=== PATIENT | male | born 1990 | race Caucasian/White ===

== ENCOUNTER 2017-11-27 21:57 | Emergency (ER) | payer MEDICAID, SELFPAY ==
[~2017-11-27] VITALS: Ht 185.4 cm; Wt 80.0 kg
[2017-11-27 22:04] VITALS: BP 141/86
== END 2017-11-27 23:52 | disposition home or self-care (01) ==
LOC: ED 23:46
DX: R53.1 Weakness (principal); R20.2 Paresthesia of skin
CPT/HCPCS: 70450; 99284

== ENCOUNTER 2018-01-08 05:18 | Inpatient (IN) | payer OTHER, MEDICAID ==
[~2018-01-08] VITALS: Ht 185.4 cm; Wt 72.9 kg
[2018-01-08] MEDS ORDERED: ONDANSETRON 2MG/ML, 2ML ONE (05:29)
[2018-01-08] MEDS ORDERED: ONDANSETRON 2MG/ML, 2ML IVPush ONE (05:30)
[2018-01-08] MEDS ORDERED: SODIUM CHLORIDE 0.9% 1,000ML IVBOLUS ONE (05:30)
[2018-01-08] MEDS ORDERED: SODIUM CHLORIDE FLUSH 10ML SYR IVF ONE (05:30)
[2018-01-08 05:55] LABS: BASOPHILS % (AUTO) 0 % (0-1); EOSINOPHILS % (AUTO) 0 % (1-7); LYMPHOCYTES # (AUTO) 0.94 x10^3/uL (1-3.4); LYMPHOCYTES % (AUTO) 9 % (22-44); MD NO; MEAN CORPUSCULAR HEMOGLOBIN 28.8 pg (27.5-34.5); MEAN CORPUSCULAR HGB CONC 32.7 g/dL (33.2-36.2); MEAN CORPUSCULAR VOLUME 87.9 fL (81-97); MEAN PLATELET VOLUME 7.9 fL (7.4-10.4); MONOCYTES # (AUTO) 1.01 x10^3/uL (0.2-0.8); MONOCYTES % (AUTO) 10 % (2-9); NEUTROPHILS # (AUTO) 8.65 x10^3/uL (1.8-6.8); NEUTROPHILS % (AUTO) 82 % (42-75); PLATELET COUNT 340 x10^3/uL (130-400); RED BLOOD COUNT 6.64 x10^6/uL (4.38-5.82); RED CELL DISTRIBUTION WIDTH 15.8 % (9.4-14.8)
[2018-01-08] MEDS ORDERED: LORazepam 2 MG/ML, 1ML IVPush ONE (06:00)
[2018-01-08 06:02] LABS: INTERNATIONAL NORMALIZED RATIO 1.06 (0.93-1.1); PROTHROMBIN TIME 10.9 Seconds (9.6-11.5)
[2018-01-08 06:07] LABS: ALANINE AMINOTRANSFERASE 412 U/L (12-78); ALBUMIN 4.4 g/dL (3.4-5.0); ANION GAP 9 mmol/L (5-15); CALCIUM 9.7 mg/dL (8.5-10.1); CHLORIDE 92 mmol/L (98-107); CREATININE 1.35 mg/dL (0.7-1.3)
[2018-01-08] MEDS ORDERED: LORazepam 2 MG/ML, 1ML ONE (06:09)
[2018-01-08 06:10] LABS: ALKALINE PHOSPHATASE 155 U/L (45-117); BILIRUBIN,TOTAL 1.1 mg/dL (0.2-1.0); TOTAL PROTEIN 9.4 g/dL (6.4-8.2)
[2018-01-08] MEDS ORDERED: METOCLOPRAMIDE 5 MG/ML, 2ML ONE (07:41)
[2018-01-08] MEDS ORDERED: METOCLOPRAMIDE 5 MG/ML, 2ML IVPush ONE (08:00)
[2018-01-08 09:08] VITALS: BP 132/75
[2018-01-08] MEDS ORDERED: SODIUM CHLORIDE 0.9% 1,000 ML IV SCH (10:00)
[2018-01-08] MEDS ORDERED: morphine SULFATE 10 MG/ML, 1ML IVPush PRN (10:00)
[2018-01-08] MEDS ORDERED: hydrALAzine 20 MG/ML, 1ML IVPush PRN (11:30)
[2018-01-08] MEDS ORDERED: BISACODYL 10 MG SUPP PR PRN (11:30)
[2018-01-08] MEDS ORDERED: POLYETHYLENE GLYCOL 17 GM PACKET PO PRN (11:30)
[2018-01-08] MEDS ORDERED: ENALAPRILAT 1.25 MG/ML, 2ML IVPush PRN (11:30)
[2018-01-08] MEDS ORDERED: ONDANSETRON 2MG/ML, 2ML IVPush PRN (11:30)
[2018-01-08] MEDS ORDERED: DOCUSATE 100 MG CAPSULE PO PRN (11:30)
[2018-01-08] MEDS: NICOTINE 7 MG/24 HR PATCH.TD24 TD SCH (11:30)
[2018-01-08] MEDS: D5%-0.9% NACL+KCL 20MEQ 1,000 ML IV SCH ×2 (11:40→20:45)
[2018-01-08] MEDS: PIPERACILLIN/TAZO/PMX 3.375GM 50 ML IV SCH ×3 (11:41→23:04)
[2018-01-08] MEDS: FAMOTIDINE 20 MG/2 ML IVPush SCH ×2 (11:43→20:45)
[2018-01-08 12:46] LABS: FREE T4 (FREE THYROXINE) 1.04 ng/dL (0.76-1.46); THYROID STIMULATING HORMONE 0.278 mIU/L (0.358-3.740)
[2018-01-08 13:35] LABS: MICROSCOPIC INDICATED
[2018-01-08 13:48] LABS: CULTURE INDICATED? NO
[2018-01-08 13:55] LABS: HEMOGLOBIN A1C 6.2 % (4.2-6.3)
[2018-01-08 14:27] VITALS: BP 132/80
[2018-01-08] MEDS: LORazepam 2 MG/ML, 1ML IVPush PRN (17:46)
[2018-01-08 20:43] VITALS: BP 137/83
[2018-01-09 02:46] VITALS: BP 139/75
[2018-01-09 04:40] LABS: BASOPHILS # (AUTO) 0.03 x10^3/uL (0-0.1); BASOPHILS % (AUTO) 0 % (0-1); EOSINOPHILS % (AUTO) 0 % (1-7); LYMPHOCYTES # (AUTO) 1.58 x10^3/uL (1-3.4); LYMPHOCYTES % (AUTO) 10 % (22-44); MD NO; MEAN CORPUSCULAR HEMOGLOBIN 29.3 pg (27.5-34.5); MEAN CORPUSCULAR HGB CONC 32.9 g/dL (33.2-36.2); MEAN CORPUSCULAR VOLUME 89.1 fL (81-97); MEAN PLATELET VOLUME 7.4 fL (7.4-10.4); MONOCYTES # (AUTO) 1.23 x10^3/uL (0.2-0.8); MONOCYTES % (AUTO) 8 % (2-9); NEUTROPHILS # (AUTO) 12.61 x10^3/uL (1.8-6.8); NEUTROPHILS % (AUTO) 82 % (42-75); PLATELET COUNT 324 x10^3/uL (130-400); RED BLOOD COUNT 5.28 x10^6/uL (4.38-5.82); RED CELL DISTRIBUTION WIDTH 16.2 % (9.4-14.8)
[2018-01-09 04:48] LABS: ALANINE AMINOTRANSFERASE 207 U/L (12-78); ALBUMIN 3.2 g/dL (3.4-5.0); ANION GAP 7 mmol/L (5-15); CALCIUM 7.8 mg/dL (8.5-10.1); CHLORIDE 105 mmol/L (98-107); TRIGLYCERIDES 104 mg/dL (50-200); VLDL CHOLESTEROL 21 mg/dL (0-25)
[2018-01-09 04:50] LABS: ALKALINE PHOSPHATASE 98 U/L (45-117); BILIRUBIN,TOTAL 1.1 mg/dL (0.2-1.0); HDL CHOLESTEROL (DIRECT) 26 mg/dL (40-60)
[2018-01-09] MEDS: D5%-0.9% NACL+KCL 20MEQ 1,000 ML IV SCH ×3 (05:38→22:08)
[2018-01-09] MEDS: PIPERACILLIN/TAZO/PMX 3.375GM 50 ML IV SCH ×4 (05:38→23:32)
[2018-01-09 06:10] LABS: CHOL/HDL RATIO 4.4; HDL CHOL % 23 % (26-37); LDL/HDL RATIO 2.6 (0.5-3.0)
[2018-01-09 06:11] LABS: CHOLESTEROL, TOTAL 115 mg/dL (140-239); LDL CHOLESTEROL,CALCULATED 68 mg/dL (54-169)
[2018-01-09 07:36] VITALS: BP 131/80
[2018-01-09] MEDS: FAMOTIDINE 20 MG/2 ML IVPush SCH ×2 (08:20→20:14)
[2018-01-09] MEDS: NICOTINE 7 MG/24 HR PATCH.TD24 TD SCH (10:45)
[2018-01-09 14:15] VITALS: BP 122/70
[2018-01-09 20:45] VITALS: BP 131/83
[2018-01-10 00:32] VITALS: BP 103/68
[2018-01-10 02:49] LABS: BASOPHILS # (AUTO) 0.03 x10^3/uL (0-0.1); BASOPHILS % (AUTO) 0 % (0-1); EOSINOPHILS # (AUTO) 0.03 x10^3/uL (0-0.4); EOSINOPHILS % (AUTO) 0 % (1-7); LYMPHOCYTES # (AUTO) 2.27 x10^3/uL (1-3.4); LYMPHOCYTES % (AUTO) 19 % (22-44); MD NO; MEAN CORPUSCULAR HEMOGLOBIN 29.2 pg (27.5-34.5); MEAN CORPUSCULAR HGB CONC 32.9 g/dL (33.2-36.2); MEAN CORPUSCULAR VOLUME 88.8 fL (81-97); MEAN PLATELET VOLUME 7.6 fL (7.4-10.4); MONOCYTES # (AUTO) 0.91 x10^3/uL (0.2-0.8); MONOCYTES % (AUTO) 8 % (2-9); NEUTROPHILS # (AUTO) 8.49 x10^3/uL (1.8-6.8); NEUTROPHILS % (AUTO) 72 % (42-75); PLATELET COUNT 280 x10^3/uL (130-400); RED BLOOD COUNT 5.27 x10^6/uL (4.38-5.82); RED CELL DISTRIBUTION WIDTH 15.7 % (9.4-14.8)
[2018-01-10 02:58] LABS: ANION GAP 6 mmol/L (5-15); CALCIUM 7.7 mg/dL (8.5-10.1); CHLORIDE 107 mmol/L (98-107)
[2018-01-10 03:02] LABS: ALANINE AMINOTRANSFERASE 162 U/L (12-78); ALKALINE PHOSPHATASE 88 U/L (45-117); BILIRUBIN,TOTAL 1.3 mg/dL (0.2-1.0); CREATININE 0.76 mg/dL (0.7-1.3); TOTAL PROTEIN 6.8 g/dL (6.4-8.2)
[2018-01-10] MEDS: PIPERACILLIN/TAZO/PMX 3.375GM 50 ML IV SCH ×2 (05:19→11:39)
[2018-01-10] MEDS: D5%-0.9% NACL+KCL 20MEQ 1,000 ML IV SCH (05:20)
[2018-01-10 07:39] VITALS: BP 138/84
[2018-01-10] MEDS: FAMOTIDINE 20 MG/2 ML IVPush SCH (08:28)
[2018-01-10] MEDS: NICOTINE 7 MG/24 HR PATCH.TD24 TD SCH (08:41)
[2018-01-10] MEDS: LORazepam 2 MG/ML, 1ML IVPush PRN (08:56)
[2018-01-10] MEDS ORDERED: METR500T PO (13:21)
[2018-01-10] MEDS ORDERED: DOCU-131 PO (13:21)
[2018-01-10] MEDS ORDERED: CIPR500T87 PO (13:21)
[2018-01-10 14:05] VITALS: BP 125/80
== END 2018-01-10 17:00 | disposition home or self-care (01) | DRG 444 ==
LOC: ED 05:22 → EDIP 08:07 → UNDOADMIN 08:36 → EDIP 08:36 → 3NW 08:43
PROVIDERS: ADMIT Hospitalist; ATTEND Hospitalist
DX: K80.20 Calculus of gallbladder without cholecystitis without obstruction (principal); N17.0 Acute kidney failure with tubular necrosis; F11.23 Opioid dependence with withdrawal; B18.2 Chronic viral hepatitis C; E86.0 Dehydration; F15.10 Other stimulant abuse, uncomplicated; F17.210 Nicotine dependence, cigarettes, uncomplicated; Z87.11 Personal history of peptic ulcer disease
CPT/HCPCS: 36415; 76700; 80053; 80061; 81001; 83036; 83690; 83735; 84439; 84443; 85025; 85610; 86703; 86704; 86705; 86706; 86708; 86709; 86803; 87040; 87340; 87521; 87899; 96361; 96374; 96375; J2405; J2543; G0435; J2060; J2270; J2765; J3480; J7030; S0028

== ENCOUNTER 2018-02-03 17:23 | Emergency (ER) | payer MEDICAID, OTHER ==
[~2018-02-03] VITALS: Ht 185.4 cm; Wt 81.8 kg
[~2018-02-03 17:23] MED LIST: CIPR500T87 PO; DOCU-131 PO; METR500T PO
[2018-02-03] MEDS ORDERED: NALOXONE 1 MG/ML, 2ML ONE (17:38)
[2018-02-03 17:44] VITALS: BP 133/110
[2018-02-03] MEDS ORDERED: NALOXONE 1 MG/ML, 2ML IM PRN (18:00)
== END 2018-02-03 18:11 | disposition left against medical advice (07) ==
LOC: ED 17:25
DX: T40.1X1A Poisoning by heroin, accidental (unintentional), initial encounter (principal); R09.02 Hypoxemia; Y92.89 Other specified places as the place of occurrence of the external cause; F15.10 Other stimulant abuse, uncomplicated
CPT/HCPCS: 96372; 99283; J2310

== ENCOUNTER 2018-03-21 08:16 | Emergency (ER) | payer MEDICAID ==
[~2018-03-21] VITALS: Ht 182.9 cm; Wt 77.0 kg
[2018-03-21 08:18] VITALS: BP 116/76
== END 2018-03-21 09:14 | disposition left against medical advice (07) ==
LOC: ED 09:00
DX: L02.414 Cutaneous abscess of left upper limb (principal); Z53.21 Procedure and treatment not carried out due to patient leaving prior to being seen by health care provider

== ENCOUNTER 2018-03-29 12:00 | Emergency (ER) | payer MEDICAID ==
[~2018-03-29] VITALS: Ht 185.4 cm; Wt 79.4 kg
[2018-03-29] MEDS ORDERED: SULFAMETH./TRIMETHOPRIM DS 800MG/160MG TABLET PO ONE (12:30)
[2018-03-29] MEDS ORDERED: SULFAMETH./TRIMETHOPRIM DS 800MG/160MG TABLET ONE (12:36)
[2018-03-29 12:57] LABS: BASOPHILS # (AUTO) 0.01 x10^3/uL (0-0.1); BASOPHILS % (AUTO) 0 % (0-1); EOSINOPHILS # (AUTO) 0.32 x10^3/uL (0-0.4); EOSINOPHILS % (AUTO) 3 % (1-7); LYMPHOCYTES # (AUTO) 2.37 x10^3/uL (1-3.4); LYMPHOCYTES % (AUTO) 22 % (22-44); MD NO; MEAN CORPUSCULAR HEMOGLOBIN 28.6 pg (27.5-34.5); MEAN CORPUSCULAR HGB CONC 32.2 g/dL (33.2-36.2); MEAN CORPUSCULAR VOLUME 88.8 fL (81-97); MEAN PLATELET VOLUME 6.8 fL (7.4-10.4); MONOCYTES # (AUTO) 0.53 x10^3/uL (0.2-0.8); MONOCYTES % (AUTO) 5 % (2-9); NEUTROPHILS # (AUTO) 7.61 x10^3/uL (1.8-6.8); NEUTROPHILS % (AUTO) 70 % (42-75); PLATELET COUNT 566 x10^3/uL (130-400); RED BLOOD COUNT 4.76 x10^6/uL (4.38-5.82); RED CELL DISTRIBUTION WIDTH 15.5 % (9.4-14.8)
[2018-03-29 13:05] LABS: ALANINE AMINOTRANSFERASE 169 U/L (12-78); ALBUMIN 2.9 g/dL (3.4-5.0); ANION GAP 9 mmol/L (5-15); CALCIUM 8.3 mg/dL (8.5-10.1); CHLORIDE 104 mmol/L (98-107); CREATININE 1.03 mg/dL (0.7-1.3)
[2018-03-29 13:07] LABS: ALKALINE PHOSPHATASE 89 U/L (45-117); BILIRUBIN,TOTAL 0.3 mg/dL (0.2-1.0); TOTAL PROTEIN 7.6 g/dL (6.4-8.2)
[2018-03-29 14:12] VITALS: BP 121/75
== END 2018-03-29 14:14 | disposition home or self-care (01) ==
LOC: ED 14:09
DX: L03.90 Cellulitis, unspecified (principal)
CPT/HCPCS: 36415; 80053; 85025; 87040; 99285

== ENCOUNTER 2018-05-08 14:03 | Emergency (ER) | payer MEDICAID ==
[~2018-05-08] VITALS: Ht 185.4 cm; Wt 77.0 kg
[2018-05-08] MEDS ORDERED: DIPH,PERTUSS(ACELL),TET VAC/PF 0.5 ML IM-VACC ONE ×2 (14:06→14:30)
[2018-05-08 14:07] VITALS: BP 120/93
== END 2018-05-08 14:34 | disposition home or self-care (01) ==
LOC: ED 14:28
DX: S01.01XA Laceration without foreign body of scalp, initial encounter (principal); F11.10 Opioid abuse, uncomplicated; X58.XXXA Exposure to other specified factors, initial encounter; Y93.89 Activity, other specified; Y92.89 Other specified places as the place of occurrence of the external cause; Y99.8 Other external cause status
CPT/HCPCS: 12032; 90471; 90715; 99284

== ENCOUNTER 2018-12-13 21:31 | Emergency (ER) | payer MEDICAID ==
[~2018-12-13] VITALS: Ht 182.9 cm; Wt 87.4 kg
[2018-12-13 21:32] VITALS: BP 129/76
--- NOTE | 2018-12-13 22:15 | NUR ---
PT GIVEN INSTRUCTIONS AND SCRIPTS. PT EDUCATED REGARDING DC MEDICATIONS WHICH ARE AMOXICILLIN AND NAPROXEN. PT AMB TO DC WITH STEADY GAIT. PT AOX4. RESPS EVEN AND UNLABORED.
== END 2018-12-13 22:15 | disposition home or self-care (01) ==
LOC: ED 22:07
DX: K02.9 Dental caries, unspecified (principal); F17.210 Nicotine dependence, cigarettes, uncomplicated; F11.10 Opioid abuse, uncomplicated; Z72.9 Problem related to lifestyle, unspecified
CPT/HCPCS: 99283

== ENCOUNTER 2019-03-04 16:41 | Emergency (ER) | payer MEDICAID ==
[~2019-03-04] VITALS: Ht 182.9 cm; Wt 81.7 kg
[2019-03-04 16:53] VITALS: BP 131/91
--- NOTE | 2019-03-04 17:48 | NUR ---
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
== END 2019-03-04 17:49 ==
LOC: ED 17:43
DX: R21 Rash and other nonspecific skin eruption (principal)
CPT/HCPCS: 99281

== ENCOUNTER 2019-10-02 09:15 | Emergency (ER) | payer MEDICAID ==
[~2019-10-02] VITALS: Ht 182.9 cm; Wt 90.8 kg
[2019-10-02 09:34] VITALS: BP 128/48
--- NOTE | 2019-10-02 11:12 | NUR ---
Patient/Caregiver given discharge instructions and they have confirmed that they understand the instructions. Patient ambulatory with steady gait.
== END 2019-10-02 11:13 ==
LOC: ED 11:07
DX: S43.422A Sprain of left rotator cuff capsule, initial encounter (principal); F17.210 Nicotine dependence, cigarettes, uncomplicated; X58.XXXA Exposure to other specified factors, initial encounter; Y93.89 Activity, other specified; Y92.69 Other specified industrial and construction area as the place of occurrence of the external cause; Y99.8 Other external cause status
CPT/HCPCS: 99283

== ENCOUNTER 2020-04-12 23:48 | Emergency (ER) | payer SELFPAY ==
[~2020-04-12] VITALS: Ht 185.4 cm; Wt 93.3 kg
--- NOTE | 2020-04-13 00:09 | NUR ---
PT REPORTS STAPH INFECTION "ALL OVER MY BODY" ALSO PAIN AND SWELLING ON LE.
--- NOTE | 2020-04-13 00:35 | NUR ---
PT TO ULTRASOUND.
--- NOTE | 2020-04-13 01:15 | NUR ---
Break RN: back from Ultrasound. awaiting result.
[2020-04-13 01:42] VITALS: BP 126/71
== END 2020-04-13 01:47 | disposition home or self-care (01) ==
LOC: ED 04-13 01:16
DX: L01.01 Non-bullous impetigo (principal); F11.20 Opioid dependence, uncomplicated; F15.20 Other stimulant dependence, uncomplicated; M79.672 Pain in left foot; M79.671 Pain in right foot
CPT/HCPCS: 93970; 99284

== ENCOUNTER 2021-02-01 13:34 | Emergency (ER) | payer MEDICAID, OTHER ==
[~2021-02-01] VITALS: Ht 185.4 cm; Wt 102.2 kg
--- NOTE | 2021-02-01 13:48 | NUR ---
C COLLAR PLACED IN TRIAGE
[2021-02-01] MEDS ORDERED: ARIP5TAB13 PO (14:00)
--- NOTE | 2021-02-01 15:21 | NUR ---
PT CALMLY LAYING ON GURNEY, C-COLLAR IN PLACE. FAMILY AT BS. NAD/VSS. COMFORT MEASURES PROVIDED.
[2021-02-01] MEDS ORDERED: HYDROcodone/APAP 5/325 TABLET ONE (15:30)
[2021-02-01] MEDS ORDERED: HYDROcodone/APAP 5/325 TABLET PO ONE (15:30)
[2021-02-01] MEDS ORDERED: ONDANSETRON ODT 4 MG PO ONE (15:30)
[2021-02-01] MEDS ORDERED: ONDANSETRON ODT 4 MG ONE (15:30)
--- NOTE | 2021-02-01 15:34 | NUR ---
PT TO XR
[2021-02-01 16:39] VITALS: BP 106/51
--- NOTE | 2021-02-01 16:40 | NUR ---
Patient given discharge instructions and they have confirmed that they understand the instructions. Patient ambulatory with steady gait.
== END 2021-02-01 16:42 | disposition home or self-care (01) ==
LOC: ED 16:00
DX: S23.3XXA Sprain of ligaments of thoracic spine, initial encounter (principal); S43.402A Unspecified sprain of left shoulder joint, initial encounter; S16.1XXA Strain of muscle, fascia and tendon at neck level, initial encounter; S06.9X1A Unspecified intracranial injury with loss of consciousness of 30 minutes or less, initial encounter; V43.52XA Car driver injured in collision with other type car in traffic accident, initial encounter; Y93.89 Activity, other specified; Y92.488 Other paved roadways as the place of occurrence of the external cause; Y99.8 Other external cause status
CPT/HCPCS: 29105; 70450; 72072; 72125; 73030; 99285; Q0162

== ENCOUNTER 2021-08-17 18:37 | Emergency (ER) | payer MEDICAID, OTHER ==
[~2021-08-17] VITALS: Ht 182.9 cm; Wt 100.9 kg
[~2021-08-17 18:37] MED LIST changes: +ARIP5TAB13 PO
[2021-08-17 18:43] VITALS: BP 111/66
[2021-08-17] MEDS ORDERED: ONDANSETRON ODT 4 MG PO ONE (19:00)
--- NOTE | 2021-08-17 22:21 | NUR ---
not in lobby when called
--- NOTE | 2021-08-17 22:21 | NUR ---
pt to room from lobby
--- NOTE | 2021-08-17 22:39 | NUR ---
pt not in lobby
--- NOTE | 2021-08-17 23:13 | NUR ---
pt not in lobby
--- NOTE | 2021-08-17 23:18 | NUR ---
pt not in lobby
== END 2021-08-17 23:19 | disposition left against medical advice (07) ==
LOC: ED 19:00
DX: U07.1 COVID-19 (principal); R11.10 Vomiting, unspecified; R06.02 Shortness of breath
CPT/HCPCS: 71045; 99283